=== PATIENT | female | born 1970 | race Caucasian/White ===

== ENCOUNTER 2017-12-10 08:00 | Inpatient (IN) | payer OTHER ==
[~2017-12-10 08:00] MED LIST: CITRIC ACID/SODIUM CITRATE 30 ML UNIT-DOSE CUP PO ONE; ELECTROLYTE-148 SOLN 1,000 ML IV ONE
[2017-12-10] MEDS ORDERED: ELECTROLYTE-148 SOLN 1,000 ML IV SCH (09:00)
[2017-12-10 09:27] VITALS: BMI 28.8
--- NOTE | 2017-12-10 10:36 | HP ---
History & Physical Update - History History: No Change (see h/p from date 12/09/17 in details) Currently as noted:: 47 yrs (AMA), advance paternal age , s/p IVF, edc 12/17 39 weeks , - Physical Currently as noted:: obese, transverse lie , cx close , edema 2+ BP 138/80 - Assessment Currently as noted:: 39 transverse, AMA , IUGR, - Plan Currently as noted:: delivery by primary c/section 12/10/17 under spinal
--- NOTE | 2017-12-10 10:40 | PN ---
Progress Note (short form) - Note Progress Note: preop labs from 12/09/17 Selected Entries 12/10/17 10:00 Temperature 98.2 F Pulse Rate 67 Blood Pressure 138/80 Laboratory Tests 12/09/17 12/09/17 12/09/17 08:40 08:40 08:40 WBC Hgb Hct Plt Count Neutrophils % Lymphocytes % Retic Count 2.51 H Haptoglobin 151 PT with INR INR PTT (Actin FS) Sodium Potassium Chloride Carbon Dioxide BUN Creatinine Random Glucose Uric Acid 4.8 Calcium AST ALT Total Protein Albumin Protein/Creatinin Ratio Cocaine Screen U Marijuana (THC) Screen RPR Titer 12/09/17 12/09/17 12/09/17 08:40 11:00 11:00 WBC 9.0 Hgb 11.0 Hct 32.4 Plt Count 175 Neutrophils % 71.3 Lymphocytes % 21.0 Retic Count Haptoglobin PT with INR INR PTT (Actin FS) Sodium Potassium Chloride Carbon Dioxide BUN Creatinine Random Glucose Uric Acid Calcium AST ALT Total Protein Albumin Protein/Creatinin Ratio 0.212 Cocaine Screen Negative U Marijuana (THC) Screen Negative RPR Titer 12/09/17 12/09/17 12/09/17 11:10 11:10 11:10 WBC Hgb Hct Plt Count Neutrophils % Lymphocytes % Retic Count Haptoglobin PT with INR 10.70 INR 0.95 PTT (Actin FS) 24.9 L Sodium 140 Potassium 4.3 Chloride 109 H Carbon Dioxide 22 BUN 10 Creatinine 0.6 Random Glucose 92 Uric Acid Calcium 8.6 AST 15 ALT 21 Total Protein 6.5 Albumin 2.6 L Protein/Creatinin Ratio Cocaine Screen U Marijuana (THC) Screen RPR Titer Nonreactive
[2017-12-10] MEDS ORDERED: OXYTOCIN 20 UNITS in 0.9% NS 20 UNIT/1,000 ML INFUS.BAG IV ONE (11:06)
[2017-12-10] MEDS ORDERED: morphine SULFATE/Preservative Free 0.5 MG/ML (1cc Syringe) ONE (11:11)
[2017-12-10] MEDS ORDERED: PHENYLEPHRINE HCL 10 MG/1 ML SINGLE DOSE VIAL ONE (11:11)
[2017-12-10] MEDS ORDERED: ceFAZolin SODIUM 1 GM VIAL ONE (11:13)
[2017-12-10] MEDS ORDERED: SUCCINYLCHOLINE CHLORIDE 200 MG/10 ML VIAL ONE (11:13)
[2017-12-10] MEDS ORDERED: SODIUM CHLORIDE 0.9% P/F 10 ML VIAL IJ ONE (11:13)
[2017-12-10] MEDS ORDERED: PROPOFOL 20 ML ONE (11:13)
[2017-12-10] MEDS ORDERED: BUPIVACAINE 0.75% IN DEXTROSE/PF 2ML AMPULE NR ONE (11:16)
[2017-12-10] MEDS ORDERED: OXYTOCIN 10 UNITS/ML VIAL ONE (11:38)
[2017-12-10] MEDS ORDERED: KETOROLAC TROMETHAMINE 30 MG/1 ML VIAL ONE (11:55)
[2017-12-10] MEDS ORDERED: ONDANSETRON 4 MG/2 ML VIAL IVPUSH PRN (12:09)
[2017-12-10] MEDS ORDERED: METHYLERGONOVINE MALEATE 0.2 MG/1 ML AMP IM PRN (12:47)
--- NOTE | 2017-12-10 13:01 | OP ---
Operative Note - Note: Operative Date: 12/10/17 Pre-Operative Diagnosis: 39 wks, transverse lie, iugr, ,ama, Operation: Primary LFTC/section Findings: 11.52 am ,,Baby Girl, 9/9, wt 5'6" ht 18" Both tubes & ovaries normal DR Marquez electroencephalograph technologist present in the room . IV ancef 2 gm ivpb prior to incision was given Surgeon: Selene Hoffman Career Technical Supervisor: Luciana Espinoza Anesthesiologist/FITTING ROOM MAINTENANCE MECHANIC: Yessica Martin Anesthesia: Spinal Specimens Removed: cord segment for cord gas. cord blood. placenta Estimated Blood Loss (mls): 900 Drains, Volume Out (mls): 100 Fluid Volume Replaced (mls): 1,200 Operative Report Dictated: Yes
--- NOTE | 2017-12-10 13:13 | PN ---
Delivery - Delivery Section: Primary, Low Flap Transverse (Indication : 39 weeks, Transverse lie, Iugr, AMA) Type of Anesthesia: Spinal Episiotomy/Laceration: None EBL (cc): 900 (bowling output 100 ml suzy color ) Delivery, Single - Stages of Labor Date of Delivery: 12/10/17 Time of Delivery: 11:52 Time Placenta Delivered: 11:53 Placenta: Yes: Manual Removal, Uterine Exploration - Condition of Oil Burner Repairer/Ping Pong Table Assembler Present: Yes Name: Lili Marquez Infant Gender: Female Weight: 5 lb 6 oz Total Hours ROM (Hrs/Mins): 0/2 - 1 Minute Total Score: 9 5 Minutes Total Score: 9 - Feeding Plan Initial Plan: Elected not to breastfeed exclusively throughout hospitalization Remarks - Remarks Remarks: 47 yrs , 39 weeks, late registrant at [address] [place] [address] , s/p IVF conception . gbs neg, not in labor Inraop course uneventful
[2017-12-10 14:04] LABS: VENOUS PC02 41.9 mmHg (38-52); VENOUS PH 7.33 (7.32-7.42); VENOUS PO2 30.5 mmHg (28-48)
--- NOTE | 2017-12-10 15:14 | OP ---
DATE OF OPERATION: 12/10/2017 PREOPERATIVE DIAGNOSIS: A 39-week , transverse lie, intrauterine growth restriction, advanced maternal age. OPERATION: Primary low flap transverse section. SURGEON: Selene Hoffman MD [facility] NURSE: JC Buckley ANESTHESIOLOGIST: Yessica Martin MD ANESTHESIA: Spinal. FINDINGS: This is a 47-year-old 1, para 0, status post IVF conception. EDC assigned was December 17, 2017. She is 39 weeks, late registrant in the clinic, is diagnosed with IUGR and transverse lie so was taken for the . Patient not in labor. PROCEDURE: Patient was taken to the operating room table, and abdomen was shaved, prepped. Spinal anesthesia was given. Tyler catheter was placed. She was placed in supine position. Abdomen was painted and draped in usual manner. Then Pfannenstiel incision was made. The skin, subcutaneous tissue, anterior rectus sheath were incised transversely. Bleeding points were clamped and cauterized. Rectus muscle was from the rectus sheath. Parietal peritoneum was opened vertically. In lower segment bladder peritoneum was identified, and it was incised transversely, The amniotic fluid was clear. hand was in the incision area & the head, was on the right side of the uterus. , Podalic version was done. The first leg was brought down, and then the second leg, then the rest of the body and the hands, and lastly the head was delivered. Immediate suction was done. Cord was clamped, and the baby was handed over to the solder making laborer, Dr. Marquez, and the baby was born at 11:52 a.m., baby girl. was 9, 9, and baby's weight was 5 pounds 6 ounces. Cord was clamped. Cord segment was sent for the cord blood gases, and the cord blood was collected, and the placenta was removed completely with the membranes. Then the uterine incision was closed in 2 layers. First layer was a continuous locking with a Biosyn 0 suture, second layer was closed with a Biosyn 0 continuous intermittent locking. Second layer vertical mattress sutures were taken. Hemostasis was checked and uterine incision and the bladder peritoneum were closed with Biosyn 0 suture. Hemostasis was verified. Both tubes and ovaries were normal. Irrigation was done. Uterus was placed back into the peritoneal cavity, and the closure of the abdomen was done. Sponge, instrument, needle count was correct. Parietal peritoneum was closed with 0 Vicryl suture, and then the muscles were approximated together with a Vicryl 0 interrupted sutures, and then anterior rectus sheath was closed with a Vicryl 0 continuous suture. Before closure of the anterior sheath, it was made sure there was hemostasis underneath the rectus sheath flaps. Hemostasis was verified, and closure of the abdomen. The subcutaneous tissue was approximated with a Biosyn 0 suture, and then skin was approximated with a 3-0 Vicryl on a curved needle. Steri-Strips were applied. Patient tolerated the procedure well. Pressure dressing was given. Blood clots were removed from the vagina. Estimated blood loss was 900 mL, and urine output was 100 mL intraoperative, and it was suzy color. She received 1200 of IV fluid, 2 g of IV Ancef prior to the incision. Patient tolerated the procedure well, and she was transferred to the recovery room in stable condition. Nishi [id number] MTDD
--- NOTE | 2017-12-10 15:49 | SURG ---
Surgery Steeping Press Operator Note Steeping Press Operator: Luciana Espinoza PA-C Date of Service: 12/10/17 Diagnosis: 39 wks, transverse lie, iugr, ,ama, Procedure: Primary LFTC/section I was present for the entirety of the operative procedure. For further detail, please refer to operative report. Visit type - Case Type Case Type: Scheduled - Emergency Emergency Visit: No - New patient This patient is new to me today: Yes Date on this admission: 12/10/17
[2017-12-10] MEDS: OXYTOCIN 20 UNITS in 0.9% NS 20 UNIT/1,000 ML INFUS.BAG IV SCH (21:25)
[2017-12-11] MEDS: OXYTOCIN 20 UNITS in 0.9% NS 20 UNIT/1,000 ML INFUS.BAG IV SCH (05:08)
[2017-12-11] MEDS: ACETAMINOPHEN 325 MG TABLET (FP) PO PRN ×2 (05:30→22:41)
[2017-12-11] MEDS: IBUPROFEN 600 MG TABLET (FP) PO PRN ×2 (05:30→14:40)
--- NOTE | 2017-12-11 07:55 | PN ---
Post Progress Note - Subjective Subjective: c/o cramps , incision pain scale 6/10 Post Day: 1 Type of Delivery: Primary C/S Vital Signs: Vital Signs Temperature 98.7 F 12/11/17 06:00 Pulse Rate 85 12/11/17 06:00 Respiratory Rate 18 12/11/17 06:00 Blood Pressure 142/79 12/11/17 06:00 O2 Sat by Pulse Oximetry (%) 99 12/10/17 14:25 Breast Exam: Yes: Soft, Other (plans to BF, attempting ). No: Engorged Uterus: Yes: Fundus Firm, Fundus @ umbilicus Incision: Yes: Dressing dry and intact. No: Redness, Oozing Abdomen/GI: Yes: Abdomen soft (bs active ), Tolerating PO (clear fluids ). No: Abdominal Distention, Tender, Passing flatus Lochia: Yes: Rubra Lochia, amount: Moderate Extremities: Yes: Calves non-tender Perineum: Yes: Intact Activity: Other (not oob yet ) Other Findings, Remarks: RS cta i/o 1150/600 ml npt voided yet since bowling is taken out Problem List - Problems (1) delivery delivered Code(s): O82 - ENCOUNTER FOR DELIVERY WITHOUT INDICATION (2) care following delivery Code(s): Z39.2 - ENCOUNTER FOR ROUTINE FOLLOW-UP Assessment/Plan s/p primary c/section stable po cbc pending encourage ambulation, deep breathing, po fluids
[2017-12-11 08:07] LABS: BASO % 0.1 % (0-2.0); EOS % 0.7 % (0-4.5); HEMATOCRIT 27.3 % (32.4-45.2); HEMOGLOBIN 9.3 GM/dL (10.7-15.3); LYMPH % 16.5 % (8-40); MCH 30.5 pg (25.7-33.7); MCHC 34.1 g/dl (32.0-36.0); MEAN CELL VOLUME 89.5 fl (80-96); MEAN PLT VOLUME 9.5 fl (7.5-11.1); MONO % 4.2 % (3.8-10.2); NEUT % 78.5 % (42.8-82.8); PLATELET COUNT 160 K/MM3 (134-434); RBC 3.05 M/mm3 (3.60-5.2); RDW 14.6 % (11.6-15.6)
[2017-12-11] MEDS: ENOXAPARIN NA (PORCINE) 40 MG/0.4 ML DISP.SYRIN SQ SCH (09:35)
[2017-12-11] MEDS: PRENATAL VITAMINS W/ FOLIC ACID TABLET (FP) PO SCH (09:43)
[2017-12-11] MEDS ORDERED: DIPHTH,PERTUSS(ACELL),TET 0.5 ML DISP.SYRIN IM ONE (10:00)
[2017-12-11] MEDS: SIMETHICONE 80 MG TAB.CHEW (FP) PO PRN ×2 (14:39→22:41)
[2017-12-11] MEDS: oxyCODONE HCL 5 MG TABLET PO PRN ×2 (14:40→22:42)
[2017-12-11] MEDS: FERROUS SO4 325 MG TABLET (FP) PO SCH (22:38)
[2017-12-12] MEDS: oxyCODONE HCL 5 MG TABLET PO PRN ×3 (05:40→20:10)
[2017-12-12] MEDS: SIMETHICONE 80 MG TAB.CHEW (FP) PO PRN ×3 (05:40→20:11)
[2017-12-12] MEDS: ACETAMINOPHEN 325 MG TABLET (FP) PO PRN ×3 (05:41→20:10)
--- NOTE | 2017-12-12 06:05 | PN ---
Post Progress Note - Subjective Subjective: c/o incisional pain scale 7/10 voiding without difficulty Post Day: 2 Type of Delivery: Primary C/S Vital Signs: Vital Signs Temperature 98.1 F 12/11/17 21:20 Pulse Rate 89 12/11/17 21:20 Respiratory Rate 20 12/11/17 21:20 Blood Pressure 144/84 12/11/17 21:20 O2 Sat by Pulse Oximetry (%) 99 12/10/17 14:25 Breast Exam: Yes: Soft, Other (attempting Bf & also bottle feeding ). No: Engorged Uterus: Yes: Fundus Firm, Fundus @ umbilicus, Non-tender Incision: Yes: Sutures intact. No: Redness, Oozing Abdomen/GI: Yes: Abdomen soft (bs active ), Passing flatus (bm not done ), Tolerating PO (reg diet ). No: Abdominal Distention, Tender Lochia: Yes: Rubra Lochia, amount: Moderate Extremities: Yes: Calves non-tender, Edema (2+/2+) Perineum: Yes: Intact Activity: Ambulating - Labs Labs: CBC WBC 10.0 K/mm3 (4.0-10.0) 12/11/17 07:05 RBC 3.05 M/mm3 (3.60-5.2) L 12/11/17 07:05 Hgb 9.3 GM/dL (10.7-15.3) L D 12/11/17 07:05 Hct 27.3 % (32.4-45.2) L D 12/11/17 07:05 MCV 89.5 fl (80-96) 12/11/17 07:05 MCH 30.5 pg (25.7-33.7) 12/11/17 07:05 MCHC 34.1 g/dl (32.0-36.0) 12/11/17 07:05 RDW 14.6 % (11.6-15.6) 12/11/17 07:05 Plt Count 160 K/MM3 (134-434) 12/11/17 07:05 MPV 9.5 fl (7.5-11.1) 12/11/17 07:05 Neutrophils % 78.5 % (42.8-82.8) 12/11/17 07:05 Lymphocytes % 16.5 % (8-40) D 12/11/17 07:05 Monocytes % 4.2 % (3.8-10.2) 12/11/17 07:05 Eosinophils % 0.7 % (0-4.5) 12/11/17 07:05 Basophils % 0.1 % (0-2.0) 12/11/17 07:05 Nucleated RBC % 0 % (0-0) 12/11/17 07:05 Problem List - Problems (1) delivery delivered Code(s): O82 - ENCOUNTER FOR DELIVERY WITHOUT INDICATION (2) care following delivery Code(s): Z39.2 - ENCOUNTER FOR ROUTINE FOLLOW-UP Assessment/Plan stable. , anemia encourage ambulation, po fluids & deep breathing
[2017-12-12] MEDS: ENOXAPARIN NA (PORCINE) 40 MG/0.4 ML DISP.SYRIN SQ SCH (09:27)
[2017-12-12] MEDS: FERROUS SO4 325 MG TABLET (FP) PO SCH ×2 (09:27→22:01)
[2017-12-12] MEDS: PRENATAL VITAMINS W/ FOLIC ACID TABLET (FP) PO SCH (09:27)
[2017-12-12] MEDS: OXYTOCIN 20 UNITS in 0.9% NS 20 UNIT/1,000 ML INFUS.BAG IV SCH (20:01)
[2017-12-12] MEDS: SENNOSIDES/DOCUSATE COMBO (SENNA PLUS) TABLET (UD) PO PRN (20:11)
[2017-12-12] MEDS: BISACODYL 10 MG SUPP.RECT RC PRN (21:35)
[2017-12-13] MEDS: ACETAMINOPHEN 325 MG TABLET (FP) PO PRN ×4 (01:53→20:15)
[2017-12-13] MEDS: SIMETHICONE 80 MG TAB.CHEW (FP) PO PRN ×4 (01:53→20:15)
[2017-12-13] MEDS: oxyCODONE HCL 5 MG TABLET PO PRN ×4 (01:53→20:15)
[2017-12-13 07:27] LABS: BASO % 0.3 % (0-2.0); EOS % 2.5 % (0-4.5); HEMATOCRIT 26.5 % (32.4-45.2); LYMPH % 26.3 % (8-40); MCH 30.6 pg (25.7-33.7); MCHC 33.9 g/dl (32.0-36.0); MEAN CELL VOLUME 90.2 fl (80-96); MEAN PLT VOLUME 8.5 fl (7.5-11.1); MONO % 6.8 % (3.8-10.2); NEUT % 64.1 % (42.8-82.8); PLATELET COUNT 191 K/MM3 (134-434); RBC 2.94 M/mm3 (3.60-5.2); WHITE BLOOD COUNT 8.1 K/mm3 (4.0-10.0)
[2017-12-13] MEDS: PRENATAL VITAMINS W/ FOLIC ACID TABLET (FP) PO SCH (09:14)
[2017-12-13] MEDS: FERROUS SO4 325 MG TABLET (FP) PO SCH ×2 (09:14→21:36)
[2017-12-13] MEDS: ENOXAPARIN NA (PORCINE) 40 MG/0.4 ML DISP.SYRIN SQ SCH (09:14)
--- NOTE | 2017-12-13 09:19 | PN ---
Post Progress Note - Subjective Subjective: c/o pain scale 8/10 not ambulating well yet Post Day: 3 Type of Delivery: Primary C/S Vital Signs: Vital Signs Temperature 97.6 F 12/13/17 08:58 Pulse Rate 74 12/13/17 08:58 Respiratory Rate 20 12/13/17 08:58 Blood Pressure 141/85 12/13/17 08:58 O2 Sat by Pulse Oximetry (%) 99 12/10/17 14:25 Breast Exam: Yes: Soft, Other (breast & bottle feeding ). No: Engorged Uterus: Yes: Fundus Firm, Fundus @ umbilicus, Non-tender Incision: Yes: Dressing dry and intact, Sutures intact (steri strips in situ ). No: Oozing, Other Abdomen/GI: Yes: Abdomen soft, Passing flatus (bm done ), Tolerating PO (diet ) . No: Abdominal Distention, Tender Lochia: Yes: Rubra Lochia, amount: Moderate Extremities: Yes: Calves non-tender, Edema (2+/2+) Perineum: Yes: Intact Activity: Ambulating (not active ) - Labs Labs: CBC WBC 8.1 K/mm3 (4.0-10.0) 12/13/17 07:00 RBC 2.94 M/mm3 (3.60-5.2) L 12/13/17 07:00 Hgb 9.0 GM/dL (10.7-15.3) L 12/13/17 07:00 Hct 26.5 % (32.4-45.2) L 12/13/17 07:00 MCV 90.2 fl (80-96) 12/13/17 07:00 MCH 30.6 pg (25.7-33.7) 12/13/17 07:00 MCHC 33.9 g/dl (32.0-36.0) 12/13/17 07:00 RDW 15.0 % (11.6-15.6) 12/13/17 07:00 Plt Count 191 K/MM3 (134-434) 12/13/17 07:00 MPV 8.5 fl (7.5-11.1) D 12/13/17 07:00 Neutrophils % 64.1 % (42.8-82.8) 12/13/17 07:00 Lymphocytes % 26.3 % (8-40) D 12/13/17 07:00 Monocytes % 6.8 % (3.8-10.2) 12/13/17 07:00 Eosinophils % 2.5 % (0-4.5) D 12/13/17 07:00 Basophils % 0.3 % (0-2.0) 12/13/17 07:00 Nucleated RBC % 0 % (0-0) 12/13/17 07:00 Problem List - Problems (1) delivery delivered Code(s): O82 - ENCOUNTER FOR DELIVERY WITHOUT INDICATION (2) care following delivery Code(s): Z39.2 - ENCOUNTER FOR ROUTINE FOLLOW-UP Assessment/Plan s/p primary c/s x 3 , anemia , pain scale high Plan encourage, anbulation, deep breathing anemia counselled due to edematous legs, mild bp elevation, place on ph HCTZ 25 mg daily
[2017-12-13] MEDS: HYDROCHLOROTHIAZIDE 25 MG TABLET (FP) PO SCH (09:48)
[2017-12-13] MEDS: BISACODYL 10 MG SUPP.RECT RC PRN (21:32)
[2017-12-13] MEDS: SENNOSIDES/DOCUSATE COMBO (SENNA PLUS) TABLET (UD) PO PRN (21:36)
[2017-12-14] MEDS: oxyCODONE HCL 5 MG TABLET PO PRN ×2 (00:07→08:55)
[2017-12-14] MEDS: SIMETHICONE 80 MG TAB.CHEW (FP) PO PRN ×2 (00:07→08:55)
[2017-12-14] MEDS: ACETAMINOPHEN 325 MG TABLET (FP) PO PRN ×2 (00:08→08:55)
[2017-12-14 04:30] VITALS: TEMP 98.3
--- NOTE | 2017-12-14 07:29 | DS ---
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 No: Distention Renal/: Yes: WNL, Other (voiding without difficulty) ....Post : Yes: Uterus firm (just below umblicus), Uterus non-tender, Moderate lochia rubra Breast(s): Yes: WNL (mildly engorged , attempting BF , also bottle feeding) Musculoskeletal: Yes: WNL Extremities: Yes: WNL. No: Calf Tenderness Edema: Yes Edema: LLE: 2+, RLE: 2+ Wound/Incision: Yes: Clean/Dry, Well Approximated, Sutures Intact, Steri Strips. No: Reddened, Bleeding, Excoriated Neurological: Yes: WNL, Alert, Oriented ...Motor Strength: WNL Psychiatric: Yes: WNL, Alert, Oriented Labs: CBC, BMP 12/13/17 07:00 Delivery - Delivery Section: Primary, Low Flap Transverse (Indication : 39 weeks, Transverse lie, Iugr, AMA) Type of Anesthesia: Spinal Episiotomy/Laceration: None EBL (cc): 900 (bowling output 100 ml suzy color ) Delivery, Single - Stages of Labor Date of Delivery: 12/10/17 Time of Delivery: 11:52 Time Placenta Delivered: 11:53 Placenta: Yes: Manual Removal, Uterine Exploration - Condition of Human Performance Professor/Mat Puncher Present: Yes Name: Lili Marquez Infant Gender: Female Weight: 5 lb 6 oz Total Hours ROM (Hrs/Mins): 0/2 - 1 Minute Total Score: 9 5 Minutes Total Score: 9 - Feeding Plan Initial Plan: Elected not to breastfeed exclusively throughout hospitalization Remarks - Remarks Remarks: 47 yrs , 39 weeks, late registrant at [address] [place] [address] , s/p IVF conception . gbs neg, not in labor Inraop course uneventful post op encourage ambulation, deep breathing pain incisional needed meds q 4hr anemia counselled discharge today Discharge Summary Reason For Visit: Current Active Problems delivery delivered (Acute) care following delivery (Acute) Condition: Stable - Instructions Diet, Activity, Other Instructions: Post Instructions DIET: Continue good diet high in protein, calcium, and iron rich foods. Drink at least eight (8) glasses of water daily in addition to other fluids. ___ Regular diet MEDICATIONS: Continue vitamins and iron as previously directed. Motrin and Tylenol may be taken for minor discomfort. ACTIVITY: Mild to moderate exercise may be started in two (2) weeks. Take frequent rest periods. Resume normal activity after six (6) week check up. WOUND CARE OF OPERATIVE SITE: Continue use of perineal bottle until vaginal discharge stops. Keep area clean. Shower daily. Keep abdominal wound dry. Report any drainage or redness to physician. Tub baths, tampons and douches are not permitted for [address] Breast feeding & or Bottle feeding BREAST CARE: (For those that are not breast feeding): If engorgement occurs: Wear tight fitting bra. Take Tylenol or Motrin for pain. Apply cold packs (ice in bags to each breast ) FAMILY PLANNING: There are many control alternatives to pursue and they should be discussed at your first office visit. You may resume sexual activity after your six (6) week check up. (Remember, breast feeding is not a contraceptive) NEXT PHYSICIAN APPOINTMENT: Be certain to call for a one (1) week appointment, unless otherwise directed. wound check Call Clinic or got to Emergency Dept if you have any of the following: Heavy vaginal bleeding Painful urination Leg pain Unusual odor noted to vaginal bleeding High fever Red streaking noted on breast Referrals: Selene Hoffman MD [Staff Physician] - Disposition: HOME - Home Medications Comprehensive Discharge Medication List: Ambulatory Orders Vitamins (Sjr) - 1 tab PO DAILY 12/09/17 Acetaminophen [Tylenol .Regular Strength -] 500 mg PO Q4H PRN #30 tablet Ferrous Sulfate [Feosol] 325 mg PO BID #60 tab 12/14/17 Vitamins (Sjr) - 1 tab PO DAILY #30 tablet 12/14/17 Sennosides/Docusate Sodium [Pericolace -] 2 tablet PO HS PRN #60 tablet oxyCODONE HCL [Roxicodone -] 10 mg PO Q6H PRN #30 tablet MDD 40 12/14/17
[2017-12-14 08:35] VITALS: BP 127/75; PULSE 80
[2017-12-14] MEDS: PRENATAL VITAMINS W/ FOLIC ACID TABLET (FP) PO SCH (09:43)
[2017-12-14] MEDS: FERROUS SO4 325 MG TABLET (FP) PO SCH (09:43)
[2017-12-14] MEDS: ENOXAPARIN NA (PORCINE) 40 MG/0.4 ML DISP.SYRIN SQ SCH (09:43)
[2017-12-14] MEDS: HYDROCHLOROTHIAZIDE 25 MG TABLET (FP) PO SCH (09:44)
--- NOTE | 2017-12-22 19:23 | PATH ---
Surgical Pathology Report Patient Name: JENNIFER SHEETS [facility]. Rec. 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 Specimen(s) Received PLACENTA Clinical History , S/P AB x1, 39 weeks IVF, IUGR and transverse lie, advanced maternal age Final Diagnosis PLACENTA: THIRD TRIMESTER PLACENTA. TRIVASCULAR CORD. MEMBRANES WITH NO DIAGNOSTIC ABNORMALITIES. Electronically Signed Fausto Flores M.D. Gross Description The specimen is received fresh labeled placenta and is a 354 gram, 23.0 x 14.0 x 2.1 cm. placenta with attached membranes and umbilical cord. The attached membranes are smiley, translucent with focal opacities and insert marginally. The umbilical cord measures 30 cm. in length and averages 1.1 cm. in diameter. The cord inserts eccentrically, 3 cm. to the nearest margin. No true knots or strictures are identified. Cut surface of the umbilical cord reveals 3 vessels. The surface is candelario-blue with minimal fibrin deposition and appropriate caliber vessels. The maternal surface is red-brown with focal defects. Sectioning reveals red-brown, spongy parenchyma. No lesions are identified. Gas Transfer Operator sections are submitted in three cassettes as follows: 1- membrane rolls and umbilical cord; 2-3- full thickness sections of placenta. 12/21/201712/21/2017
== END 2017-12-14 12:40 | disposition home or self-care (01) | DRG 540 ==
LOC: JLDR 08:00 → J3W 14:40
PROVIDERS: ADMIT Obstetrics & Gynecology; ATTEND Obstetrics & Gynecology
PROC: 10D00Z1 Extraction of Products of Conception, Low, Open Approach (ICD-10-PCS; principal; 2017-12-10)
DX: O36.5930 Maternal care for other known or suspected poor fetal growth, third trimester, not applicable or unspecified (principal); O32.2XX0 Maternal care for transverse and oblique lie, not applicable or unspecified; O99.02 Anemia complicating childbirth; D64.9 Anemia, unspecified; Z3A.39 39 weeks gestation of pregnancy; Z37.0 Single live birth
CPT/HCPCS: 36415; 82803; 85025; 88307-TC; 90715; 94010